=== PATIENT | female | born 1935 | race Caucasian/White ===

== ENCOUNTER 2022-07-31 12:46 | Emergency (ER) | payer BC ==
[~2022-07-31] VITALS: Ht 162.6 cm; Wt 60.6 kg
[2022-07-31 12:58] VITALS: BP 156/81
[2022-07-31] MEDS ORDERED: morphine 4 MG/ML inj SYRINge IM ONE (15:55)
[2022-07-31] MEDS ORDERED: ondansetron 4mg rapidly disintigrating tab PO ONE (15:55)
[2022-07-31] MEDS ORDERED: METH4TAB3 PO (16:45)
== END 2022-07-31 17:22 | disposition home or self-care (01) ==
LOC: ER 12:47
DX: M54.31 Sciatica, right side (principal)
CPT/HCPCS: 73502; 96372; 99283; J2270

== ENCOUNTER 2023-12-28 14:54 | Emergency (ER) | payer BC ==
[~2023-12-28] VITALS: Ht 167.6 cm; Wt 60.0 kg
[~2023-12-28 14:54] MED LIST: METH4TAB3 PO
[2023-12-28] MEDS ORDERED: TERB30CR8 TOP (16:05)
[2023-12-28 16:16] VITALS: BP 150/94; PULSE 64; RESP 17; TEMP 98.6; O2SAT 98
[2023-12-28] MEDS: terbinafine cream 30gm TP ONE (16:16)
== END 2023-12-28 16:19 | disposition home or self-care (01) ==
LOC: ER 14:54
DX: B36.8 Other specified superficial mycoses (principal); Z79.899 Other long term (current) drug therapy
CPT/HCPCS: 99282